=== PATIENT | female | born 1960 | race Caucasian/White ===

== ENCOUNTER 2024-12-23 18:48 | Inpatient (IN) | payer SELFPAY ==
[2024-12-23 20:09] LABS: #Basophils 0.05 10x3/uL (0.0-0.2); #Eosinophils 0.11 10x3/uL (0.0-0.7); #Monocytes 0.96 10x3/uL (0.11-0.59); #Neutrophils 3.83 10x3/uL (1.40-6.50); %Basophils 0.8 % (0.0-1.0); %Eosinophils 1.8 % (0.0-10.0); %Lymphocytes 19.2 % (21.0-51.0); %Monocytes 15.4 % (0.0-10.0); %Neutrophils 61.2 % (42.0-75.0); Hematocrit 30.9 % (36.0-47.0); Hemoglobin 10.7 g/dL (12.0-16.0); Mean Corpuscular Hemoglobin 37.4 pg (27.0-31.0); Mean Corpuscular Volume 108.0 fL (78.0-98.0); Platelet Count 101 10x3/uL (130-400); Red Blood Cell (RBC) Count 2.86 mill/uL (4.20-5.40); White Blood Cell (WBC) Count 6.25 10x3/uL (4.8-10.8)
[2024-12-23 20:26] LABS: INR-International Normal Ratio 2.4; PTT 48.2 sec (22.9-36.1); Prothrombin Time 26.5 sec (12.0-14.7)
[2024-12-23 20:28] LABS: ALT (SGPT) 39 U/L (Less than 34); AST (SGOT) 75 U/L (11-34); Albumin 2.4 g/dL (3.1-4.5); Alkaline Phosphatase 250 U/L (40-110); Anion Gap 13 mmol/L (10-20); BUN (Urea Nitrogen) 11 mg/dL (9.8-20.1); Bilirubin, Total 13.1 mg/dL (0.3-1.2); Calc. Creatinine Clearance 0 mL/min (70-130); Calcium 8.1 mg/dL (7.8-10.44); Carbon Dioxide 18 mmol/L (23-31); Chloride 101 mmol/L (98-107); Globulin 4.0 g/dL (2.4-3.5); Glucose 111 mg/dL (80-115); Potassium 4.1 mmol/L (3.5-5.1); Sodium 128 mmol/L (136-145)
[2024-12-23 20:38] LABS: Anisocytosis SLIGHT = 6-15 cells HPF (0-5); Burr Cells MODERATE= 6-15 cells HPF (0-1); Macrocytosis SLIGHT = 6-15 cells HPF (0-5); Platelet Adequacy Comment Platelets Decreased; Poikilocytosis SLIGHT = 6-15 cells HPF (0-5); Polychromasia SLIGHT = 2-3 cells HPF (0-2)
[2024-12-23] MEDS ORDERED: Senokot S 8.6-50 MG TAB PO PRN (22:17)
[2024-12-23] MEDS ORDERED: Melatonin 3 MG TAB PO PRN (22:17)
[2024-12-23 22:59] VITALS: BMI 23.8
[2024-12-23] MEDS: Furosemide 40 MG (4 mL) VIAL SLOW IVP SCH (23:38)
[2024-12-24 05:54] LABS: #Basophils 0.03 10x3/uL (0.0-0.2); #Eosinophils 0.15 10x3/uL (0.0-0.7); #Monocytes 0.98 10x3/uL (0.11-0.59); #Neutrophils 2.37 10x3/uL (1.40-6.50); %Basophils 0.6 % (0.0-1.0); %Eosinophils 2.9 % (0.0-10.0); %Lymphocytes 29.9 % (21.0-51.0); %Monocytes 19.1 % (0.0-10.0); %Neutrophils 46.3 % (42.0-75.0); Hematocrit 24.8 % (36.0-47.0); Hemoglobin 8.9 g/dL (12.0-16.0); Mean Corpuscular Hemoglobin 37.6 pg (27.0-31.0); Mean Corpuscular Volume 104.6 fL (78.0-98.0); Platelet Count 86 10x3/uL (130-400); Red Blood Cell (RBC) Count 2.37 mill/uL (4.20-5.40); White Blood Cell (WBC) Count 5.12 10x3/uL (4.8-10.8)
[2024-12-24 06:00] LABS: ALT (SGPT) 27 U/L (Less than 34); AST (SGOT) 63 U/L (11-34); Albumin 1.9 g/dL (3.1-4.5); Alkaline Phosphatase 218 U/L (40-110); Anion Gap 11 mmol/L (10-20); BUN (Urea Nitrogen) 11 mg/dL (9.8-20.1); Bilirubin, Total 10.6 mg/dL (0.3-1.2); Calc. Creatinine Clearance 91 mL/min (70-130); Calcium 7.8 mg/dL (7.8-10.44); Carbon Dioxide 21 mmol/L (23-31); Chloride 102 mmol/L (98-107); Globulin 3.4 g/dL (2.4-3.5); Glucose 102 mg/dL (80-115); Iron 78 ug/dL (50-170); Iron Binding Capacity, Total 186 mcg/dL (265-497); Potassium 3.7 mmol/L (3.5-5.1); Sodium 130 mmol/L (136-145)
[2024-12-24 06:04] LABS: Iron 80 ug/dL (50-170); Iron Binding Capacity, Total 184 mcg/dL (265-497)
[2024-12-24] MEDS ORDERED: Enoxaparin 40 MG (0.4 mL) SYRINGE SC SCH (09:00)
[2024-12-24] MEDS: Lactulose 20 GM (30 mL) UDCUP PO SCH (09:18)
[2024-12-24] MEDS: Furosemide 40 MG (4 mL) VIAL SLOW IVP SCH (09:18)
[2024-12-24] MEDS: Famotidine 20 MG TAB PO SCH (09:18)
[2024-12-25 05:09] LABS: #Basophils 0.04 10x3/uL (0.0-0.2); #Eosinophils 0.18 10x3/uL (0.0-0.7); #Monocytes 0.99 10x3/uL (0.11-0.59); #Neutrophils 2.62 10x3/uL (1.40-6.50); %Basophils 0.7 % (0.0-1.0); %Eosinophils 3.3 % (0.0-10.0); %Lymphocytes 28.4 % (21.0-51.0); %Monocytes 18.1 % (0.0-10.0); %Neutrophils 48.0 % (42.0-75.0); Hematocrit 26.0 % (36.0-47.0); Hemoglobin 9.3 g/dL (12.0-16.0); Mean Corpuscular Hemoglobin 38.0 pg (27.0-31.0); Mean Corpuscular Volume 106.1 fL (78.0-98.0); Platelet Count 86 10x3/uL (130-400); Red Blood Cell (RBC) Count 2.45 mill/uL (4.20-5.40); White Blood Cell (WBC) Count 5.46 10x3/uL (4.8-10.8)
[2024-12-25 05:18] LABS: INR-International Normal Ratio 2.5; Prothrombin Time 27.1 sec (12.0-14.7)
[2024-12-25 05:28] LABS: ALT (SGPT) 29 U/L (Less than 34); AST (SGOT) 62 U/L (11-34); Albumin 1.9 g/dL (3.1-4.5); Alkaline Phosphatase 198 U/L (40-110); Anion Gap 9 mmol/L (10-20); BUN (Urea Nitrogen) 12 mg/dL (9.8-20.1); Bilirubin, Total 10.9 mg/dL (0.3-1.2); Calc. Creatinine Clearance 93 mL/min (70-130); Calcium 7.8 mg/dL (7.8-10.44); Carbon Dioxide 22 mmol/L (23-31); Chloride 102 mmol/L (98-107); Globulin 3.2 g/dL (2.4-3.5); Glucose 80 mg/dL (80-115); Potassium 3.9 mmol/L (3.5-5.1); Sodium 129 mmol/L (136-145)
[2024-12-25 05:29] LABS: Immunoglob - G (Total IgG) 1650 mg/dL (552-1631); Immunoglob - M (Total IgM) 46 mg/dL (33-293)
[2024-12-25] MEDS: Multivitamin W/ Minerals 1 TAB PO SCH (10:29)
[2024-12-25] MEDS: Thiamine 100 MG TAB PO SCH (10:29)
[2024-12-25 12:09] LABS: ANA Symphony (Qualitative) Negative (Negative); ANA Symphony (Quantitative) 0.4 Ratio (< 0.7 Negative); EliA Vaculitis New Method **** NEW METHOD ****; Mitochondrial Ab 1.4 U/mL (<4 Negative); dsDNA IgG Antibody 1.1 IU/mL (<10 Negative)
[2024-12-25 13:38] LABS: Osmolality, Serum 270 mOsm/kg (280-301)
[2024-12-25 18:17] LABS: Osmolality, Urine 467 mOsm/kg (50-1200)
[2024-12-26 07:09] LABS: ALT (SGPT) 30 U/L (Less than 34); AST (SGOT) 60 U/L (11-34); Albumin 1.9 g/dL (3.1-4.5); Alkaline Phosphatase 206 U/L (40-110); Anion Gap 10 mmol/L (10-20); BUN (Urea Nitrogen) 11 mg/dL (9.8-20.1); Bilirubin, Total 10.7 mg/dL (0.3-1.2); Calc. Creatinine Clearance 99 mL/min (70-130); Calcium 7.9 mg/dL (7.8-10.44); Carbon Dioxide 23 mmol/L (23-31); Chloride 103 mmol/L (98-107); Globulin 3.2 g/dL (2.4-3.5); Glucose 72 mg/dL (80-115); Potassium 3.8 mmol/L (3.5-5.1); Sodium 132 mmol/L (136-145)
[2024-12-26 08:04] LABS: #Basophils 0.05 10x3/uL (0.0-0.2); #Eosinophils 0.20 10x3/uL (0.0-0.7); #Monocytes 1.05 10x3/uL (0.11-0.59); #Neutrophils 2.60 10x3/uL (1.40-6.50); %Basophils 0.8 % (0.0-1.0); %Eosinophils 3.4 % (0.0-10.0); %Lymphocytes 32.2 % (21.0-51.0); %Monocytes 17.8 % (0.0-10.0); %Neutrophils 44.1 % (42.0-75.0); Hematocrit 25.8 % (36.0-47.0); Hemoglobin 9.1 g/dL (12.0-16.0); Mean Corpuscular Hemoglobin 37.8 pg (27.0-31.0); Mean Corpuscular Volume 107.1 fL (78.0-98.0); Platelet Count 80 10x3/uL (130-400); Red Blood Cell (RBC) Count 2.41 mill/uL (4.20-5.40); White Blood Cell (WBC) Count 5.90 10x3/uL (4.8-10.8)
[2024-12-26 11:54] VITALS: BP 145/63; TEMP 98
[2024-12-27 14:13] LABS: Smooth Muscle Total ABS 13.0 Units (0-19)
== END 2024-12-26 15:00 | disposition home or self-care (01) | DRG 433 ==
LOC: ERS 18:48 → OBSVTOIN 21:36 → 2NO 21:36
PROVIDERS: ADMIT Internal Medicine; ATTEND Internal Medicine
DX: K70.31 Alcoholic cirrhosis of liver with ascites (principal); E87.1 Hypo-osmolality and hyponatremia; J90 Pleural effusion, not elsewhere classified; D18.09 Hemangioma of other sites; E87.8 Other disorders of electrolyte and fluid balance, not elsewhere classified; D69.6 Thrombocytopenia, unspecified; R74.01 Elevation of levels of liver transaminase levels; E87.70 Fluid overload, unspecified; I12.9 Hypertensive chronic kidney disease with stage 1 through stage 4 chronic kidney disease, or unspecified chronic kidney disease; D63.1 Anemia in chronic kidney disease; N18.1 Chronic kidney disease, stage 1; Z88.0 Allergy status to penicillin; Z90.49 Acquired absence of other specified parts of digestive tract; Z90.710 Acquired absence of both cervix and uterus; Z98.891 History of uterine scar from previous surgery; Z98.890 Other specified postprocedural states; Z79.899 Other long term (current) drug therapy
CPT/HCPCS: 36415; 71045; 74183; 80053; 82103; 82105; 82390; 82607; 82728; 83516; 83540; 83550; 83930; 83935; 85025; 85610; 85730; 86015; 86038; 86225; J1940

== ENCOUNTER 2025-02-28 13:48 | Inpatient (IN) | payer SELFPAY ==
[2025-02-28 17:03] LABS: #Basophils Less than 0.03 10x3/uL (0.0-0.2); #Eosinophils 0.03 10x3/uL (0.0-0.7); #Monocytes 1.11 10x3/uL (0.11-0.59); #Neutrophils 8.27 10x3/uL (1.40-6.50); %Basophils 0.2 % (0.0-1.0); %Eosinophils 0.3 % (0.0-10.0); %Lymphocytes 7.9 % (21.0-51.0); %Monocytes 10.6 % (0.0-10.0); %Neutrophils 78.7 % (42.0-75.0); Hematocrit 25.8 % (36.0-47.0); Hemoglobin 9.2 g/dL (12.0-16.0); Mean Corpuscular Hemoglobin 38.8 pg (27.0-31.0); Mean Corpuscular Volume 108.9 fL (78.0-98.0); Platelet Count 106 10x3/uL (130-400); Red Blood Cell (RBC) Count 2.37 mill/uL (4.20-5.40); White Blood Cell (WBC) Count 10.50 10x3/uL (4.8-10.8)
[2025-02-28 17:35] LABS: ALT (SGPT) 65 U/L (Less than 34); AST (SGOT) 105 U/L (11-34); Albumin 2.3 g/dL (3.1-4.5); Alkaline Phosphatase 181 U/L (40-110); Anion Gap 18 mmol/L (10-20); BUN (Urea Nitrogen) 17 mg/dL (9.8-20.1); Bilirubin, Total 23.0 mg/dL (0.3-1.2); Calc. Creatinine Clearance 0 mL/min (70-130); Calcium 8.8 mg/dL (7.8-10.44); Carbon Dioxide 17 mmol/L (23-31); Chloride 88 mmol/L (98-107); Globulin 3.6 g/dL (2.4-3.5); Glucose 86 mg/dL (80-115); Potassium 5.5 mmol/L (3.5-5.1); Sodium 117 mmol/L (136-145)
[2025-02-28 17:55] LABS: INR-International Normal Ratio 1.9; Prothrombin Time 22.2 sec (12.0-14.7)
[2025-02-28 17:56] LABS: PTT 51.8 sec (22.9-36.1)
[2025-02-28 18:09] LABS: ALT (SGPT) 65 U/L (Less than 34); AST (SGOT) 89 U/L (11-34); Albumin 2.3 g/dL (3.1-4.5); Alkaline Phosphatase 174 U/L (40-110); Bilirubin, Direct 11.7 mg/dL (0.1-0.3); Bilirubin, Total 22.1 mg/dL (0.3-1.2); Magnesium 2.0 mg/dL (1.6-2.6)
[2025-02-28 19:21] LABS: Glucose, Urine (Dipstick) 100 mg/dL (Negative); Leukocyte Negative (Negative); Protein, Urine (Dipstick) Negative (Neg-Trace); Specific Gravity, Urine 1.025 (1.005-1.030)
[2025-02-28 19:27] LABS: Bacteria/HPF 4+ HPF (None Seen); CAUTI Indications for Culture Alt mental st,lethar; RBC/HPF 0-3 HPF (0-3); WBC/HPF 0-3 HPF (0-3)
[2025-02-28 19:29] LABS: Urine Culture Reflex No No
[2025-02-28 20:49] LABS: Osmolality, Serum 238 mOsm/kg (280-301)
[2025-02-28 23:53] LABS: Anion Gap 9 mmol/L (10-20); BUN (Urea Nitrogen) 16 mg/dL (9.8-20.1); Calc. Creatinine Clearance 0 mL/min (70-130); Calcium 7.8 mg/dL (7.8-10.44); Carbon Dioxide 18 mmol/L (23-31); Chloride 91 mmol/L (98-107); Glucose 119 mg/dL (80-115); Potassium 4.9 mmol/L (3.5-5.1); Sodium 113 mmol/L (136-145)
[2025-03-01] MEDS: oxyCODONE 5 MG TAB PO PRN (00:56)
[2025-03-01] MEDS: Sodium Chloride 256 MEQ in Sterile Water 936 ML IV SCH ×2 (01:31→04:15)
[2025-03-01 04:18] LABS: #Basophils 0.03 10x3/uL (0.0-0.2); #Eosinophils 0.10 10x3/uL (0.0-0.7); #Monocytes 0.97 10x3/uL (0.11-0.59); #Neutrophils 6.10 10x3/uL (1.40-6.50); %Basophils 0.3 % (0.0-1.0); %Eosinophils 1.1 % (0.0-10.0); %Lymphocytes 14.9 % (21.0-51.0); %Monocytes 11.1 % (0.0-10.0); %Neutrophils 69.9 % (42.0-75.0); Hematocrit 22.5 % (36.0-47.0); Hemoglobin 7.8 g/dL (12.0-16.0); Mean Corpuscular Hemoglobin 38.8 pg (27.0-31.0); Mean Corpuscular Volume 111.9 fL (78.0-98.0); Platelet Count 88 10x3/uL (130-400); Red Blood Cell (RBC) Count 2.01 mill/uL (4.20-5.40); White Blood Cell (WBC) Count 8.74 10x3/uL (4.8-10.8)
[2025-03-01 04:27] LABS: ALT (SGPT) 58 U/L (Less than 34); AST (SGOT) 75 U/L (11-34); Albumin 2.0 g/dL (3.1-4.5); Alkaline Phosphatase 152 U/L (40-110); Anion Gap 8 mmol/L (10-20); BUN (Urea Nitrogen) 17 mg/dL (9.8-20.1); Bilirubin, Total 19.6 mg/dL (0.3-1.2); Calc. Creatinine Clearance 92 mL/min (70-130); Calcium 8.0 mg/dL (7.8-10.44); Carbon Dioxide 19 mmol/L (23-31); Chloride 90 mmol/L (98-107); Globulin 3.0 g/dL (2.4-3.5); Glucose 111 mg/dL (80-115); Potassium 5.1 mmol/L (3.5-5.1); Sodium 112 mmol/L (136-145)
[2025-03-01 08:47] LABS: Anion Gap 11 mmol/L (10-20); BUN (Urea Nitrogen) 16 mg/dL (9.8-20.1); Calc. Creatinine Clearance 90 mL/min (70-130); Calcium 8.0 mg/dL (7.8-10.44); Carbon Dioxide 17 mmol/L (23-31); Chloride 90 mmol/L (98-107); Glucose 109 mg/dL (80-115); Potassium 5.3 mmol/L (3.5-5.1); Sodium 113 mmol/L (136-145)
[2025-03-01] MEDS ORDERED: Propranolol 10 MG TAB PO SCH (09:00)
[2025-03-01] MEDS ORDERED: Famotidine 20 MG TAB PO SCH (09:00)
[2025-03-01] MEDS: Lactulose 20 GM (30 mL) UDCUP PO SCH (09:04)
[2025-03-01] MEDS: Pantoprazole 40 MG VIAL IVP SCH (09:06)
[2025-03-01] MEDS: Multivitamin W/ Minerals 1 TAB PO SCH (09:07)
[2025-03-01] MEDS: Propranolol 10 MG TAB PO SCH (09:07)
[2025-03-01] MEDS: Mupirocin 1 GM TUBE TP SCH (09:08)
[2025-03-01] MEDS: Cyanocobalamin (Vitamin B-12) 1,000 MCG TAB PO SCH (09:09)
[2025-03-01] MEDS: Thiamine 100 MG TAB PO SCH (09:09)
[2025-03-01] MEDS: Folic Acid 1 MG TAB PO SCH (09:09)
[2025-03-01 10:25] LABS: Sodium, Urine 41.0 mmol/L (Not Available)
[2025-03-01 11:25] LABS: Anion Gap 13 mmol/L (10-20); BUN (Urea Nitrogen) 17 mg/dL (9.8-20.1); Calc. Creatinine Clearance 89 mL/min (70-130); Calcium 8.2 mg/dL (7.8-10.44); Carbon Dioxide 16 mmol/L (23-31); Chloride 93 mmol/L (98-107); Glucose 103 mg/dL (80-115); Potassium 5.1 mmol/L (3.5-5.1); Sodium 117 mmol/L (136-145)
[2025-03-01 11:44] LABS: Osmolality, Urine 659 mOsm/kg (50-1200)
[2025-03-01 15:37] LABS: Anion Gap 13 mmol/L (10-20); BUN (Urea Nitrogen) 16 mg/dL (9.8-20.1); Calc. Creatinine Clearance 87 mL/min (70-130); Calcium 8.0 mg/dL (7.8-10.44); Carbon Dioxide 14 mmol/L (23-31); Chloride 94 mmol/L (98-107); Glucose 135 mg/dL (80-115); Potassium 5.5 mmol/L (3.5-5.1); Sodium 115 mmol/L (136-145)
[2025-03-01 20:18] LABS: Anion Gap 11 mmol/L (10-20); BUN (Urea Nitrogen) 17 mg/dL (9.8-20.1); Calc. Creatinine Clearance 87 mL/min (70-130); Calcium 7.9 mg/dL (7.8-10.44); Carbon Dioxide 12 mmol/L (23-31); Chloride 95 mmol/L (98-107); Glucose 115 mg/dL (80-115); Potassium 5.4 mmol/L (3.5-5.1); Sodium 113 mmol/L (136-145)
[2025-03-01 22:44] LABS: Anion Gap 13 mmol/L (10-20); BUN (Urea Nitrogen) 16 mg/dL (9.8-20.1); Calc. Creatinine Clearance 89 mL/min (70-130); Calcium 7.7 mg/dL (7.8-10.44); Carbon Dioxide 12 mmol/L (23-31); Chloride 95 mmol/L (98-107); Glucose 98 mg/dL (80-115); Potassium 5.7 mmol/L (3.5-5.1); Sodium 114 mmol/L (136-145)
[2025-03-02] MEDS: LOKELMA 10 GM PACKET PO SCH ×2 (00:30→18:06)
[2025-03-02 01:32] LABS: Anion Gap 11 mmol/L (10-20); BUN (Urea Nitrogen) 18 mg/dL (9.8-20.1); Calc. Creatinine Clearance 82 mL/min (70-130); Calcium 8.0 mg/dL (7.8-10.44); Carbon Dioxide 16 mmol/L (23-31); Chloride 94 mmol/L (98-107); Glucose 103 mg/dL (80-115); Potassium 5.1 mmol/L (3.5-5.1); Sodium 116 mmol/L (136-145)
[2025-03-02 03:21] LABS: #Basophils Less than 0.03 10x3/uL (0.0-0.2); #Eosinophils 0.07 10x3/uL (0.0-0.7); #Monocytes 0.97 10x3/uL (0.11-0.59); #Neutrophils 6.67 10x3/uL (1.40-6.50); %Basophils 0.2 % (0.0-1.0); %Eosinophils 0.8 % (0.0-10.0); %Lymphocytes 8.4 % (21.0-51.0); %Monocytes 11.2 % (0.0-10.0); %Neutrophils 77.1 % (42.0-75.0); Hematocrit 23.0 % (36.0-47.0); Hemoglobin 8.0 g/dL (12.0-16.0); Mean Corpuscular Hemoglobin 39.2 pg (27.0-31.0); Mean Corpuscular Volume 112.7 fL (78.0-98.0); Platelet Count 80 10x3/uL (130-400); Red Blood Cell (RBC) Count 2.04 mill/uL (4.20-5.40); White Blood Cell (WBC) Count 8.66 10x3/uL (4.8-10.8)
[2025-03-02 03:32] LABS: INR-International Normal Ratio 2.1; Prothrombin Time 23.4 sec (12.0-14.7)
[2025-03-02 04:06] LABS: ALT (SGPT) 59 U/L (Less than 34); AST (SGOT) 75 U/L (11-34); Albumin 2.1 g/dL (3.1-4.5); Alkaline Phosphatase 154 U/L (40-110); Anion Gap 10 mmol/L (10-20); BUN (Urea Nitrogen) 18 mg/dL (9.8-20.1); Bilirubin, Total 18.8 mg/dL (0.3-1.2); Calc. Creatinine Clearance 83 mL/min (70-130); Calcium 8.1 mg/dL (7.8-10.44); Carbon Dioxide 15 mmol/L (23-31); Chloride 94 mmol/L (98-107); Globulin 3.1 g/dL (2.4-3.5); Glucose 104 mg/dL (80-115); Magnesium 1.9 mg/dL (1.6-2.6); Potassium 5.1 mmol/L (3.5-5.1); Sodium 114 mmol/L (136-145)
[2025-03-02 08:49] LABS: Anion Gap 10 mmol/L (10-20); BUN (Urea Nitrogen) 18 mg/dL (9.8-20.1); Calc. Creatinine Clearance 91 mL/min (70-130); Calcium 8.2 mg/dL (7.8-10.44); Carbon Dioxide 16 mmol/L (23-31); Chloride 96 mmol/L (98-107); Glucose 93 mg/dL (80-115); Potassium 5.1 mmol/L (3.5-5.1); Sodium 117 mmol/L (136-145)
[2025-03-02] MEDS: Ondansetron PF 4 MG/2 ML Vial IVP PRN (08:55)
[2025-03-02] MEDS: Albumin 25% 25 GM (100 mL) BOT IVPB SCH (13:29)
[2025-03-02] MEDS: cefTRIAXone\\ROCEPHIN 1 GM in Sodium Chloride 0.9% 100 ML IVPB SCH (13:29)
[2025-03-02] MEDS ORDERED: Lactulose 20 GM (30 mL) UDCUP PO SCH (15:00)
[2025-03-02 17:11] LABS: Actual Bicarbonate (HCO3v) 16.4 mEq/L (22-28); Base Excess -7.4 mEq/L (-2.0 to +3.0); Calcium, Ionized (venous) 1.12 mmol/L (1.16-1.32); Chloride (VBG) 95 mmol/L (98-106); Hematocrit-VBG 25 % (36.0-47.0); Hemoglobin (Hb) 8.6 g/dL (11.7-16.0); Potassium (VBG) 5.30 mmol/L (3.70-5.30)
[2025-03-02 17:12] LABS: Sodium 118 mmol/L (133-146)
[2025-03-02 17:30] LABS: ALT (SGPT) 52 U/L (Less than 34); AST (SGOT) 74 U/L (11-34); Albumin 2.5 g/dL (3.1-4.5); Alkaline Phosphatase 149 U/L (40-110); Anion Gap 11 mmol/L (10-20); BUN (Urea Nitrogen) 20 mg/dL (9.8-20.1); Bilirubin, Total 17.8 mg/dL (0.3-1.2); Calc. Creatinine Clearance 80 mL/min (70-130); Calcium 8.3 mg/dL (7.8-10.44); Carbon Dioxide 16 mmol/L (23-31); Chloride 97 mmol/L (98-107); Globulin 2.8 g/dL (2.4-3.5); Glucose 117 mg/dL (80-115); Potassium 5.4 mmol/L (3.5-5.1); Sodium 119 mmol/L (136-145)
[2025-03-02] MEDS: Sodium Bicarb 50 MEQ/50 ML Abboject 8.4% SYRINGE IVP SCH (18:05)
[2025-03-02] MEDS: Admixture Fee 1 EACH in Sodium Chloride 3% 100 ML IVPB SCH (18:06)
[2025-03-02 23:42] LABS: Anion Gap 11 mmol/L (10-20); BUN (Urea Nitrogen) 22 mg/dL (9.8-20.1); Calc. Creatinine Clearance 77 mL/min (70-130); Calcium 8.1 mg/dL (7.8-10.44); Carbon Dioxide 17 mmol/L (23-31); Chloride 97 mmol/L (98-107); Glucose 127 mg/dL (80-115); Potassium 5.2 mmol/L (3.5-5.1); Sodium 120 mmol/L (136-145)
[2025-03-03 05:11] LABS: ALT (SGPT) 38 U/L (Less than 34); AST (SGOT) 53 U/L (11-34); Albumin 2.8 g/dL (3.1-4.5); Alkaline Phosphatase 134 U/L (40-110); Anion Gap 12 mmol/L (10-20); BUN (Urea Nitrogen) 20 mg/dL (9.8-20.1); Bilirubin, Total 15.2 mg/dL (0.3-1.2); Calc. Creatinine Clearance 81 mL/min (70-130); Calcium 8.3 mg/dL (7.8-10.44); Carbon Dioxide 20 mmol/L (23-31); Chloride 96 mmol/L (98-107); Globulin 2.1 g/dL (2.4-3.5); Glucose 122 mg/dL (80-115); Magnesium 2.1 mg/dL (1.6-2.6); Potassium 4.8 mmol/L (3.5-5.1); Sodium 123 mmol/L (136-145)
[2025-03-03 05:13] LABS: #Basophils 0.03 10x3/uL (0.0-0.2); #Eosinophils 0.09 10x3/uL (0.0-0.7); #Monocytes 1.14 10x3/uL (0.11-0.59); #Neutrophils 7.18 10x3/uL (1.40-6.50); %Basophils 0.3 % (0.0-1.0); %Eosinophils 0.9 % (0.0-10.0); %Lymphocytes 12.9 % (21.0-51.0); %Monocytes 11.5 % (0.0-10.0); %Neutrophils 72.3 % (42.0-75.0); Hematocrit 17.0 % (36.0-47.0); Hemoglobin 6.1 g/dL (12.0-16.0); Mean Corpuscular Hemoglobin 40.4 pg (27.0-31.0); Mean Corpuscular Volume 112.6 fL (78.0-98.0); Platelet Count 65 10x3/uL (130-400); Red Blood Cell (RBC) Count 1.51 mill/uL (4.20-5.40); White Blood Cell (WBC) Count 9.93 10x3/uL (4.8-10.8)
[2025-03-03 07:06] VITALS: BMI 22.0
[2025-03-03] MEDS: Sodium Bicarb 50 MEQ/50 ML Abboject 8.4% SYRINGE IVP SCH (09:11)
[2025-03-03 09:28] LABS: Iron 129 ug/dL (50-170); Iron Binding Capacity, Total 150 mcg/dL (265-497)
[2025-03-03 16:50] LABS: Anion Gap 5 mmol/L (10-20); BUN (Urea Nitrogen) 17 mg/dL (9.8-20.1); Calc. Creatinine Clearance 92 mL/min (70-130); Calcium 8.5 mg/dL (7.8-10.44); Carbon Dioxide 21 mmol/L (23-31); Chloride 94 mmol/L (98-107); Glucose 115 mg/dL (80-115); Potassium 4.6 mmol/L (3.5-5.1); Sodium 115 mmol/L (136-145)
[2025-03-03 18:47] LABS: Hematocrit 25.7 % (36.0-47.0); Hemoglobin 9.0 g/dL (12.0-16.0)
[2025-03-03] MEDS: Lactulose 20 GM (30 mL) UDCUP PO SCH (19:47)
[2025-03-04] MEDS: Norepinephrine 8 MG/0.9% NS 250 ML ONE (00:38)
[2025-03-04 05:01] LABS: #Basophils 0.07 10x3/uL (0.0-0.2); #Eosinophils 0.10 10x3/uL (0.0-0.7); #Monocytes 0.93 10x3/uL (0.11-0.59); #Neutrophils 4.10 10x3/uL (1.40-6.50); %Basophils 1.1 % (0.0-1.0); %Eosinophils 1.6 % (0.0-10.0); %Lymphocytes 15.0 % (21.0-51.0); %Monocytes 14.6 % (0.0-10.0); %Neutrophils 64.3 % (42.0-75.0); Hematocrit 26.6 % (36.0-47.0); Hemoglobin 9.8 g/dL (12.0-16.0); Mean Corpuscular Hemoglobin 36.2 pg (27.0-31.0); Mean Corpuscular Volume 98.2 fL (78.0-98.0); Platelet Count 61 10x3/uL (130-400); Red Blood Cell (RBC) Count 2.71 mill/uL (4.20-5.40); White Blood Cell (WBC) Count 6.38 10x3/uL (4.8-10.8)
[2025-03-04 05:09] LABS: ALT (SGPT) 41 U/L (Less than 34); AST (SGOT) 58 U/L (11-34); Albumin 3.2 g/dL (3.1-4.5); Alkaline Phosphatase 148 U/L (40-110); Anion Gap 12 mmol/L (10-20); BUN (Urea Nitrogen) 21 mg/dL (9.8-20.1); Bilirubin, Total 19.5 mg/dL (0.3-1.2); Calc. Creatinine Clearance 75 mL/min (70-130); Calcium 8.9 mg/dL (7.8-10.44); Carbon Dioxide 21 mmol/L (23-31); Chloride 95 mmol/L (98-107); Globulin 2.3 g/dL (2.4-3.5); Glucose 99 mg/dL (80-115); Potassium 4.5 mmol/L (3.5-5.1); Sodium 123 mmol/L (136-145)
[2025-03-04] MEDS: Lactulose 20 GM (30 mL) UDCUP PO SCH (08:07)
[2025-03-04 10:51] LABS: Anion Gap 12 mmol/L (10-20); BUN (Urea Nitrogen) 23 mg/dL (9.8-20.1); Calc. Creatinine Clearance 87 mL/min (70-130); Calcium 8.9 mg/dL (7.8-10.44); Carbon Dioxide 20 mmol/L (23-31); Chloride 96 mmol/L (98-107); Glucose 134 mg/dL (80-115); Potassium 4.5 mmol/L (3.5-5.1); Sodium 123 mmol/L (136-145)
[2025-03-04 18:37] LABS: Anion Gap 12 mmol/L (10-20); BUN (Urea Nitrogen) 28 mg/dL (9.8-20.1); Calc. Creatinine Clearance 73 mL/min (70-130); Calcium 8.8 mg/dL (7.8-10.44); Carbon Dioxide 18 mmol/L (23-31); Chloride 96 mmol/L (98-107); Glucose 152 mg/dL (80-115); Potassium 4.2 mmol/L (3.5-5.1); Sodium 122 mmol/L (136-145)
[2025-03-05 05:01] LABS: ALT (SGPT) 38 U/L (Less than 34); AST (SGOT) 49 U/L (11-34); Albumin 2.7 g/dL (3.1-4.5); Alkaline Phosphatase 111 U/L (40-110); Anion Gap 12 mmol/L (10-20); BUN (Urea Nitrogen) 32 mg/dL (9.8-20.1); Bilirubin, Total 18.9 mg/dL (0.3-1.2); Calc. Creatinine Clearance 69 mL/min (70-130); Calcium 8.6 mg/dL (7.8-10.44); Carbon Dioxide 18 mmol/L (23-31); Chloride 96 mmol/L (98-107); Globulin 2.1 g/dL (2.4-3.5); Glucose 106 mg/dL (80-115); Potassium 4.2 mmol/L (3.5-5.1); Sodium 122 mmol/L (136-145)
[2025-03-05 05:19] LABS: #Basophils 0.04 10x3/uL (0.0-0.2); #Eosinophils 0.11 10x3/uL (0.0-0.7); #Monocytes 0.99 10x3/uL (0.11-0.59); #Neutrophils 3.27 10x3/uL (1.40-6.50); %Basophils 0.7 % (0.0-1.0); %Eosinophils 1.9 % (0.0-10.0); %Lymphocytes 21.6 % (21.0-51.0); %Monocytes 16.9 % (0.0-10.0); %Neutrophils 55.7 % (42.0-75.0); Hematocrit 24.3 % (36.0-47.0); Hemoglobin 8.5 g/dL (12.0-16.0); Mean Corpuscular Hemoglobin 35.1 pg (27.0-31.0); Mean Corpuscular Volume 100.4 fL (78.0-98.0); Platelet Count 58 10x3/uL (130-400); Red Blood Cell (RBC) Count 2.42 mill/uL (4.20-5.40); White Blood Cell (WBC) Count 5.87 10x3/uL (4.8-10.8)
[2025-03-05 12:43] LABS: Anion Gap 10 mmol/L (10-20); BUN (Urea Nitrogen) 32 mg/dL (9.8-20.1); Calc. Creatinine Clearance 81 mL/min (70-130); Calcium 8.4 mg/dL (7.8-10.44); Carbon Dioxide 20 mmol/L (23-31); Chloride 96 mmol/L (98-107); Glucose 114 mg/dL (80-115); Potassium 4.3 mmol/L (3.5-5.1); Sodium 122 mmol/L (136-145)
[2025-03-05 15:14] VITALS: BMI 23.1
[2025-03-06 04:51] LABS: Hematocrit 26.0 % (36.0-47.0); Hemoglobin 9.1 g/dL (12.0-16.0); Mean Corpuscular Hemoglobin 35.0 pg (27.0-31.0); Mean Corpuscular Volume 100.0 fL (78.0-98.0); Platelet Count 59 10x3/uL (130-400); Red Blood Cell (RBC) Count 2.60 mill/uL (4.20-5.40); White Blood Cell (WBC) Count 5.88 10x3/uL (4.8-10.8)
[2025-03-06 06:47] LABS: Anisocytosis MODERATE=16-30 cells HPF (0-5); Burr Cells SLIGHT = 2-5 cells HPF (0-1); Macrocytosis SLIGHT = 6-15 cells HPF (0-5); Platelet Adequacy Comment Platelets Decreased; Polychromasia SLIGHT = 2-3 cells HPF (0-2); Smudge Cells 14.2 %
[2025-03-06 09:34] LABS: Anion Gap 13 mmol/L (10-20); BUN (Urea Nitrogen) 33 mg/dL (9.8-20.1); Calc. Creatinine Clearance 99 mL/min (70-130); Calcium 8.3 mg/dL (7.8-10.44); Carbon Dioxide 15 mmol/L (23-31); Chloride 98 mmol/L (98-107); Glucose 192 mg/dL (80-115); Potassium 3.6 mmol/L (3.5-5.1); Sodium 122 mmol/L (136-145)
[2025-03-06] MEDS: Sodium Bicarbonate Tab 325 MG TAB PO SCH (15:26)
[2025-03-06 18:49] LABS: Anion Gap 6 mmol/L (10-20); BUN (Urea Nitrogen) 30 mg/dL (9.8-20.1); Calc. Creatinine Clearance 104 mL/min (70-130); Calcium 8.0 mg/dL (7.8-10.44); Carbon Dioxide 17 mmol/L (23-31); Chloride 100 mmol/L (98-107); Glucose 112 mg/dL (80-115); Potassium 3.9 mmol/L (3.5-5.1); Sodium 119 mmol/L (136-145)
[2025-03-07 04:11] LABS: #Basophils 0.04 10x3/uL (0.0-0.2); #Eosinophils 0.10 10x3/uL (0.0-0.7); #Monocytes 1.01 10x3/uL (0.11-0.59); #Neutrophils 3.09 10x3/uL (1.40-6.50); %Basophils 0.8 % (0.0-1.0); %Eosinophils 1.9 % (0.0-10.0); %Lymphocytes 15.5 % (21.0-51.0); %Monocytes 19.1 % (0.0-10.0); %Neutrophils 58.5 % (42.0-75.0); Hematocrit 25.5 % (36.0-47.0); Hemoglobin 9.0 g/dL (12.0-16.0); Mean Corpuscular Hemoglobin 35.4 pg (27.0-31.0); Mean Corpuscular Volume 100.4 fL (78.0-98.0); Platelet Count 57 10x3/uL (130-400); Red Blood Cell (RBC) Count 2.54 mill/uL (4.20-5.40); White Blood Cell (WBC) Count 5.28 10x3/uL (4.8-10.8)
[2025-03-07 04:37] LABS: ALT (SGPT) 34 U/L (Less than 34); AST (SGOT) 51 U/L (11-34); Albumin 2.4 g/dL (3.1-4.5); Alkaline Phosphatase 151 U/L (40-110); Anion Gap 6 mmol/L (10-20); BUN (Urea Nitrogen) 32 mg/dL (9.8-20.1); Bilirubin, Total 15.7 mg/dL (0.3-1.2); Calc. Creatinine Clearance 97 mL/min (70-130); Calcium 8.1 mg/dL (7.8-10.44); Carbon Dioxide 17 mmol/L (23-31); Chloride 104 mmol/L (98-107); Globulin 2.3 g/dL (2.4-3.5); Glucose 133 mg/dL (80-115); Potassium 3.7 mmol/L (3.5-5.1); Sodium 123 mmol/L (136-145)
[2025-03-08 07:58] VITALS: BP 132/61; TEMP 97.9
[2025-03-08 08:03] LABS: #Basophils 0.04 10x3/uL (0.0-0.2); #Eosinophils 0.12 10x3/uL (0.0-0.7); #Monocytes 1.00 10x3/uL (0.11-0.59); #Neutrophils 2.95 10x3/uL (1.40-6.50); %Basophils 0.8 % (0.0-1.0); %Eosinophils 2.3 % (0.0-10.0); %Lymphocytes 16.4 % (21.0-51.0); %Monocytes 19.6 % (0.0-10.0); %Neutrophils 57.8 % (42.0-75.0); Hematocrit 27.9 % (36.0-47.0); Hemoglobin 9.6 g/dL (12.0-16.0); Mean Corpuscular Hemoglobin 35.8 pg (27.0-31.0); Mean Corpuscular Volume 104.1 fL (78.0-98.0); Platelet Count 64 10x3/uL (130-400); Red Blood Cell (RBC) Count 2.68 mill/uL (4.20-5.40); White Blood Cell (WBC) Count 5.11 10x3/uL (4.8-10.8)
[2025-03-08 08:22] LABS: Anion Gap 7 mmol/L (10-20); BUN (Urea Nitrogen) 28 mg/dL (9.8-20.1); Calc. Creatinine Clearance 88 mL/min (70-130); Calcium 8.3 mg/dL (7.8-10.44); Carbon Dioxide 17 mmol/L (23-31); Chloride 107 mmol/L (98-107); Glucose 122 mg/dL (80-115); Potassium 3.5 mmol/L (3.5-5.1); Sodium 127 mmol/L (136-145)
== END 2025-03-08 13:51 | disposition hospice, home (50) | DRG 432 ==
LOC: ERS 13:48 → ERHOLD 20:48 → CCU 21:02 → PCU 03-04 21:30 → 2SE 03-05 20:15
PROVIDERS: ADMIT Student in an Organized Health Care Education/Training Program; ATTEND Family Medicine
PROC: 30233N1 Transfusion of Nonautologous Red Blood Cells into Peripheral Vein, Percutaneous Approach (ICD-10-PCS; principal; 2025-02-28)
DX: K70.30 Alcoholic cirrhosis of liver without ascites (principal); E43 Unspecified severe protein-calorie malnutrition; G93.41 Metabolic encephalopathy; D68.9 Coagulation defect, unspecified; E22.2 Syndrome of inappropriate secretion of antidiuretic hormone; K92.0 Hematemesis; N39.0 Urinary tract infection, site not specified; D18.03 Hemangioma of intra-abdominal structures; D69.6 Thrombocytopenia, unspecified; E88.09 Other disorders of plasma-protein metabolism, not elsewhere classified; D63.1 Anemia in chronic kidney disease; N18.2 Chronic kidney disease, stage 2 (mild); F10.10 Alcohol abuse, uncomplicated; E80.6 Other disorders of bilirubin metabolism; D53.9 Nutritional anemia, unspecified; E87.5 Hyperkalemia; K21.9 Gastro-esophageal reflux disease without esophagitis; Z79.899 Other long term (current) drug therapy; K76.82 Hepatic encephalopathy
CPT/HCPCS: 36415; 36416; 36430; 71045; 74183; 80048; 80053; 81001; 82105; 82140; 82310; 82533; 82570; 82728; 82805; 83540; 83550; 83735; 83930; 83935; 84100; 84295; 84300; 84443; 84560; 85025; 85610; 85730; 86850; 86900; 86901; 93005; 96374; A4217; J0696; J2272; J2405; J2470; J7131; P9016; P9047